=== PATIENT | male | born 1955 | race Caucasian/White ===

== ENCOUNTER 2018-01-19 09:52 | Inpatient (IN) | payer OTHER ==
[2018-01-15 10:14] LABS: HEMATOCRIT 39.1 % (42.0-52.0); HEMOGLOBIN 13.5 gm/dL (14.0-18.0); MCH 33.5 pg (26.0-34.0); MCHC 34.6 g/dL (28.0-37.0); MCV 96.8 fL (80.0-100.0); MPV 7.4 fl. (7.2-11.1); RBC 4.04 mil/uL (4.50-6.00); RDW-CV 12.9 % (10.5-14.5); WBC 7.5 thou/uL (4.0-11.0)
[2018-01-15 10:16] LABS: URINE BILIRUBIN NEGATIVE (Negative); URINE BLOOD NEGATIVE (Negative); URINE CLARITY CLEAR; URINE COLOR YELLOW; URINE GLUCOSE-RANDOM NEGATIVE (Negative); URINE KETONES NEGATIVE (Negative); URINE LEUKOCYTES-REFLEX NEGATIVE (Negative); URINE NITRITE-REFLEX NEGATIVE (Negative); URINE PROTEIN NEGATIVE (Negative); URINE UROBILINOGEN 0.2 E.U./dl (0.2-1.0)
[2018-01-15 10:20] LABS: PROTIME 9.9 Seconds (9.20-11.50)
[2018-01-15 10:40] LABS: CREATININE 1.2 mg/dL (0.6-1.3); POTASSIUM 3.5 mmol/L (3.5-5.1); TOTAL BILIRUBIN 0.4 mg/dL (<0.1-1.0); TOTAL PROTEIN 7.2 g/dL (6.4-8.2)
--- NOTE | 2018-01-15 10:41 | EKG ---
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
[~2018-01-19] VITALS: Ht 167.6 cm; Wt 75.7 kg
[~2018-01-19 09:52] MED LIST: ALTACE10 MG PO; ASPIR 8181 MG PO; CARVEDILOL12.5 MG PO; CENTRUM SILVER1 EAC4 PO; CHLORTHALIDONE25 MG PO; CO Q-10100 MG PO; CRESTOR40 MG PO; PRISTIQ50 M1 PO; PROTONIX40 M1 PO; VITAMINC500 PO; ZETIA10 MG PO
[2018-01-19 11:05] VITALS: BP 121/80
--- NOTE | 2018-01-19 13:04 | NUR ---
RECIEVED O.T. EVAL AND TX ORDER. WILL DEFER TO P.T. AND NURSING. PLEASE ORDER FURTHER O.T. SERVICES IF NEEDED.
[2018-01-19 14:52] VITALS: BP 126/69
--- NOTE | 2018-01-19 14:59 | NUR ---
PATIENT TRANSFERRED FROM PACU TO ROOM 112. ALERT AND ORIENTED. STATES PAIN IS BETTER AT 2/10. SAT 95% ON 2L WITH CAPNO IN PLACE. RIGHT KAIN IN PLACE. SCD'S IN PLACE. POLAR CARE IN PLACE. DRESSING TO LEFT KNEE DRY AND INTACT. BED ALARM SET. DISCUSSED FALL PREVENTION. ORIENTED TO ROOM. WILL CONTINUE TO MONITOR.
--- NOTE | 2018-01-19 16:24 | NUR ---
PATIENT REMIANS ALERT AND ORIENTED. PAIN CONTROLLLED. O2 AT 2L. CAPNO IN PLACE. SAT 97%. TOLERATING LIQUIDS. DRESSING TO KNEE DRY AND INTACT. POLAR CARE IN PLACE. AT BEDSIDE. DENIES FURTHER NEEDS OR CONCERNS. CALL LIGHT WITHIN REACH. WILL CONTINUE TO MONITOR.
[2018-01-19 20:15] VITALS: BP 117/84
[2018-01-20 00:09] VITALS: BP 113/79
[2018-01-20 04:18] LABS: HEMATOCRIT 31.8 % (42.0-52.0); HEMOGLOBIN 11.3 gm/dL (14.0-18.0)
[2018-01-20 04:19] VITALS: BP 130/85
--- NOTE | 2018-01-20 05:17 | NUR ---
PATIENT ALERT AND ORIENTED. VITALS STABLE. ON 2L OF OXYGEN. PAIN CONTROLLED WITH PO MEDICATION. DENIES NAUSEA. TOLERATED CPM WELL AT HS. FLUIDS INFUSING PER ORDER. VOIDING ADEQUATELY PER URINAL. LEFT KNEE DRESSING C/D/I. HOURLY ROUNDS. BED ALARM IN USE. NURSING WILL CONTINUE TO MONITOR.
[2018-01-20 08:04] VITALS: BP 120/71
[2018-01-20] MEDS ORDERED: PERCOCET PO (11:32)
[2018-01-20] MEDS ORDERED: XARELTO10 MG PO (11:33)
[2018-01-20 13:05] VITALS: BP 120/71
[2018-01-20 13:12] VITALS: BP 104/62
--- NOTE | 2018-01-20 15:35 | NUR ---
PATIENT DISCHARGED TO HOME AT THIS TIME. IV REMOVED. SCRIPT FOR XARELTO CALLED INTO PATIENTS PHARMACY. SCRIPT FOR PERCOCET GIVEN TO PATIENT. EXTRA DRESSINGS FOR HEMOVAC SITE SENT WITH PATIENT. CPM SENT. PATIENT VERBALIZES UNDERSTANDING OF DC INSTRUCTIONS. DISCHARGED WITH .
--- NOTE | 2018-01-20 16:00 | NUR ---
CM SPOKE WITH PT.AT BEGINNING OF SECOND THERAPY SESSION. HE SAID HE DID NOT KNOW IF HE WAS GOING HOME DUE TO PAIN CONTROL. HE WAS WORRIED ABOUT NOT BEING ABLE TO GET HIS PRESCRIPTIONS AT HIS PHARMACY BEFORE THEY CLOSED. CALLED [facility] IN [place] AND THEY STAY OPEN UNTIL 8PM. CALLED IN XARELTO PRESCRIPTION WRITTEN TO PHARMACY. COPY IS $25. INFORMED PT.AND HE CAN AFFOR THAT. ALSO TOLD HIM PHARMACY HRS. HE WILL NEED A WALKER. ORDER OBTAINED AFTER CHECKING WITH REESE/PROV.PLUS. THERAPY DEPT WILL DISPENSE ONE TO PT.PRIOR TO DISCHARGE. REFERRAL MADE TO [facility] FOR P.T.AND FAXED DISCHARGE ORDERS. PT.S WILL BE WITH HIM AT HOME. HE IS NORMALLY INDEPENDENT AT HOME.
--- NOTE | 2018-01-21 11:08 | S ---
[address] [address] SURGICAL PATH RPT PROCEDURE Name: JAYCOB POP Room: [address] IN M.R.#: [id number] Admission: 01/19/18 Date of : 57 Discharge: 01/20/18 Report #: [id number] Path Case #: [id number] PATHOLOGY REPORT COLLECTION DATE: 01/19/2018 RECEIVED DATE: 01/19/2018 SUBMITTING PHYS: Dr. Russ Becerra II OTHER PHYS: Dr. Anil Felix SPECIMEN(S) RECEIVED: A.Bone left knee * * * * * * * * * * * * FINAL DIAGNOSIS: Bone left knee, total knee replacement: - Benign synovium and meniscus and benign bone and cartilage with degenerative changes. (EMILY:pollo; 01/21/2018) PATHOLOGIST: Juventino Padron M.D. REPORT ELECTRONICALLY SIGNED BY: Juventino Padron M.D. DATE/TIME: 01/21/2018 11:08 * * * * * * * * * * * * GROSS PATHOLOGY: Received in formalin labeled "ronny Odom left knee," are multiple segments of bone, including tibial plateau, measuring 13.8 x 10.6 x 2.2 cm in aggregate dimensions admixed with soft tissue; meniscus is present. Upon extensive sectioning, eburnation of the articular surfaces is not grossly evident. Switchboard Installer sections of bone and soft tissue are submitted in cassette A1, following decalcification. (DAC; 01/20/2018) CLINICAL HISTORY: Left knee degenerative joint disease INITIAL CPT CODE(S): A; 14735, 05892 Professional services performed by [facility] at [facility], [facility] , [place] [address]. Technical services performed by [facility] at [address] [place] [address], [address] [address]. [place] [address] SURGICAL PATH RPT PROCEDURE Name: JAYCOB POP Room: [address] IN .R.#: [id number] Admission: 01/19/18 Date of : 57 Discharge: 01/20/18 Report #: [id number] Path Case #: [id number] [facility] [address] [address] PHONE: [phone] DIRECTOR: Pb Osborn M.D. * * * END OF REPORT * * *
--- NOTE | 2018-01-26 10:40 | OP ---
[facility] [address] [place] [address] OPERATIVE REPORT Name: JAYCOB POP Room: [address] IN M.R.#: [id number] Admission: 01/19/18 Attend Phys: Margy Walls Discharge: 01/20/18 Date of : 57 Report #: [id number] THIS REPORT FOR: //name// CC: Daniel Felix DATE OF SERVICE: 01/19/2018 PREOPERATIVE DIAGNOSIS: Left knee osteoarthritis. POSTOPERATIVE DIAGNOSIS: Left knee osteoarthritis. PROCEDURE: Left total knee arthroplasty with Navio. SURGEON: Russ Becerra II, DO. HELIOTHERAPIST: ANNABEL Milan. ANESTHESIA: Per operative record. ESTIMATED BLOOD LOSS: 50 mL. ANTIBIOTICS: Per operative record. DRAINS: Medium Hemovac. COMPLICATIONS: None. CONDITION: Stable to recovery room. IMPLANTS: Listed in the operative record and progress note. BRIEF HISTORY: The patient was seen in preoperative area. Preop H and P was performed. Site was marked, questions were answered. Risks and benefits were discussed with the patient in detail about the surgery. The patient wished to proceed and assumed all risks. DESCRIPTION OF PROCEDURE: The patient was taken to the operative suite, placed supine on the operating table. He was given appropriate anesthesia. A well-padded tourniquet applied to upper thigh, was inflated to 300 mmHg after gravity exsanguination. The operative knee was sterilely prepped and draped. Surgery began by midline incision. This was carried down to subcutaneous tissues. A medial parapatellar arthrotomy was then performed, it was carried down to the bone. The patella was everted, and excess soft tissues and osteophytes were removed from the femur and tibia. The Navio guide pins were [facility] [address] [place] [address] OPERATIVE REPORT Name: JAYCOB POP Room: [address] IN [facility].#: [id number] Admission: 01/19/18 Attend Phys: Margy Walls Discharge: 01/20/18 Date of : 57 Report #: [id number] then placed in the tibia and femur in appropriate fashion. The knee was then registered through the software and the robot was activated. The appropriate alignment of the blocks have been performed, and then, the robot was activated to ream the holes for these cutting blocks. After the reaming was proceeded on the femur and tibia, the femoral cutting block was then applied, checked for rotation alignment with the robot in the prone position and appropriate cuts were made. The 4-in-1 cutting block was then applied, checked for appropriate cut depth with the robot in a proper position. Appropriate cuts were made. The tibia was then exposed, excess meniscus removed. Retractor placed on the collateral ligaments. The tibial cutting block was then applied, checked with robot for appropriate alignment and slope, pinned into appropriate position. Appropriate cut was made. Tibial bone was removed. The tibial base plate was then applied, checked for rotation alignment, with the drop ailyn in appropriate position. Femur was then applied and box cut was reamed. This was then trialed with appropriate spacer which showed excellent fit and fill and excellent stability of the knee through all range of motion. The patella was then reamed in reverse fashion, sized for appropriate size. Three peg holes were drilled. It was then trialed, found to have excellent flexion, extension, excellent tracking of the patella from the groove. These trials were removed. The tibia was punched in appropriate fashion. Bone was then cleansed with Pulsavac irrigation and cement was mixed to apply the final implants. These were then malleted in position and held the knee in extension and compressed to allow the cement to cure. After it cured, the excess was removed using Dawn and osteotome. The wound was then copiously irrigated, and the final spacer was malleted into position. Tourniquet was deflated. Hemostasis was maintained with electrocautery. The pain cocktail was injected. PRP gel was sprayed throughout the internal aspects of the knee. The medium Hemovac drain was then applied. The capsule was closed with 2 FiberWire and 1 Vicryl in [id number] fashion. The skin was closed with 2-0 Vicryl and running 3-0 Monocryl. The tracker pins were then removed from the femur and closed with nylon. Sterile dressing was then applied. The Keenan wrap and PolarCare applied. The patient transferred to recovery in stable state. Counts correct throughout the procedure. <ELECTRONICALLY SIGNED> By: Russ Becerra II, DO 01/26/18 1040 0848 [id number] Becerra II, DO /nt
== END 2018-01-20 15:41 | disposition home health service (06) | DRG 470 ==
LOC: M.TBA 09:52 → M.PRE 10:20 → M.ORTHSURG 14:20 → M.PRE 14:35 → M.ORTHSURG 01-20 15:41
PROVIDERS: Orthopaedic Surgery; ADMIT Internal Medicine
PROC: 0SRD0JZ Replacement of Left Knee Joint with Synthetic Substitute, Open Approach (ICD-10-PCS; principal; 2018-01-19)
PROC: 3E0T3BZ Introduction of Anesthetic Agent into Peripheral Nerves and Plexi, Percutaneous Approach (ICD-10-PCS; principal; 2018-01-19)
DX: M17.12 Unilateral primary osteoarthritis, left knee (principal); D62 Acute posthemorrhagic anemia; K21.9 Gastro-esophageal reflux disease without esophagitis; I10 Essential (primary) hypertension; I25.10 Atherosclerotic heart disease of native coronary artery without angina pectoris; E78.00 Pure hypercholesterolemia, unspecified; F32.9 Major depressive disorder, single episode, unspecified; Z88.0 Allergy status to penicillin; Z90.49 Acquired absence of other specified parts of digestive tract; Z95.5 Presence of coronary angioplasty implant and graft